=== PATIENT | female | born 1945 | race Caucasian/White ===

== ENCOUNTER 2024-12-26 16:07 | Inpatient (IN) | payer MEDICARE, BC ==
[~2024-12-26] VITALS: Ht 170.2 cm; Wt 72.7 kg
--- NOTE | 2024-12-26 16:35 | Physician Documentation ---
History of Present Illness ~ Chief Complaint: Urinary Symptoms Stated Complaint: LOW OXYGEN/INFECTION Time Seen by MD: 18:07 HPI This is a 79-year-old female who presents for evaluation of persistent recurrent UTI symptoms that include suprapubic pain, urgency, generalized malaise, and frequency as well as burning with urination. This began about eight months ago when she turned 79, and now becomes more frequent. She had recently been seen at our facility diagnosed with UTI, prescribed levofloxacin, which made her very sick with nausea and generalized malaise, but did not improve her symptoms in any way. No palliating or aggravating factors. She is concerned that it medication is not working. Incidentally went to the urgent care to take care of this issue and possibly swi tch medications, however was found to be hypoxic the outside facility at 91% and told to come to the ER. She denies any chest pain or difficulty breathing. She reports a history of vaginal prolapse of bladder. Has not seen an OBGYN for it. No concern for tobacco, alcohol or illicit substances use Medication Reconciliation Allergies: Coded Allergies: No Known Allergies (Unverified , 12/26/24) Review of Systems ROS 10 point review of systems was performed and unless noted above in HPI is negative for acute process/complaint. Physical Exam Vital Signs: Temperature: 97.8, Source: Temporal, Heart Rate: 79, Respiratory Rate: 18, BP: 166/94, Pulse Oximetry: 94, Weight: 72.730 Physical Exam Physical examination: GENERAL: Awake, alert, oriented, GCS 15, no apparent distress, non-toxic appearing, answers questions, follows commands appropriately. Examined in bed 8., accompanied by HEENT: Atraumatic, normocephalic, pupils equal, extraocular muscles intact Active gross movements, sclerae anicteric, mucus membranes moist, no stridor. NECK: Midline, no JVD CARDIOVASCULAR: Good skin perfusion without evidence of pallor, mottling. PULMONARY: Nonlabored, symmetric chest rise, no audible wheezing, no accessory muscle use, no respiratory distress, speaking in full sentences. GASTROINTESTINAL: Not distended. NEUROLOGIC: Lucid with normal mental status. Normal facial symmetry. Moves all extremities symmetrically and with purpose. No truncal ataxia. Speech is fluid without evidence of dysarthria or aphasia, no focal deficits appreciated. EXTREMITIES: Acute deformities Skin: warm, dry PSYCHIATRIC: Normal affect, normal insight, normal concentration. Focused exam: [Pelvic exam was deferred as this appears to be chronic issue and does not appear to be necessary for today's chief complaint of dysuria] Progress Results/Orders Results/Orders Orders - TIP DEJESUS DO Saline Lock (12/26/24 19:53) Hs Troponin I W Calculations (12/26/24 19:53) Straight Cath For Urine Sample (12/26/24 19:53) Page Hospitalist (12/26/24 20:01) Fill Out Med Reconciliation (12/26/24 20:01) Cult Urine + [address] (12/26/24 20:29) Completed Orders - TIP DEJESUS DO Ondansetron Disint. Tablet (Zofran Odt T (12/26/24 18:45) ESR (12/26/24 19:53) C-Reactive Protein (12/26/24 19:53) Normal Saline 1000ml (Sodium Chloride 10 (12/26/24 19:55) Ceftriaxone 2gm/Ns 100ml Ivpb (Rocephin (12/26/24 19:55) Ceftriaxone 2gm/D5w 50ml Bag (Rocephin 2 (12/26/24 19:56) PBNP (12/26/24 19:59) Troponin (Single) (12/26/24 19:59) Ua W/Microscopic, Cult If Ind (12/26/24 20:01) Medications Received in ER Medications (Trade) Dose Ordered Sig/Augustus Route PRN Reason Start Time Stop Time Status Last Admin Dose Admin (Zofran ODT tablet) 8 mg ONCE ONCE PO 12/26/24 18:45 12/26/24 18:46 DC 12/26/24 18:50 8 MG (sodium chloride 1000ml IV soln) 1,000 ml ONCE ONCE IVB 12/26/24 19:55 12/26/24 19:56 DC 12/26/24 20:14 1,000 ML Ceftriaxone Sodium/Dextrose 50 ml @ 100 mls/hr ONCE ONCE IV 12/26/24 19:56 12/26/24 20:24 DC 12/26/24 20:14 100 MLS/HR Sodium Chloride 1,000 ml @ 75 mls/hr [id number] IV 12/26/24 20:45 12/26/24 20:45 75 MLS/HR Vital Signs 12/26/24 12/26/24 12/26/24 12/26/24 16:16 18:07 18:07 18:51 Temp 97.8 97.8 Pulse 79 69 66 Resp 18 15 16 14 B/P (MAP) 166/94 154/82 (106) 159/65 (96) Pulse Ox 94 93 94 O2 Flow Rate 0 Laboratory Tests Test 12/26/24 16:38 12/26/24 17:36 12/26/24 20:01 12/26/24 20:04 White Blood Count 8.4 Red Blood Count 4.17 L Hemoglobin 12.7 Hematocrit 38.0 Mean Corpuscular Volume 91.2 Mean Corpuscular Hemoglobin 30.4 Mean Corpuscular Hemoglobin Concent 33.3 Red Cell Distribution Width 13.1 Platelet Count 265 Mean Platelet Volume 8.4 Neutrophils (%) (Auto) 75.8 H Lymphocytes (%) (Auto) 11.8 L Monocytes (%) (Auto) 11.4 Eosinophils (%) (Auto) 0.6 Basophils (%) (Auto) 0.4 Neutrophils # (Auto) 6.4 Lymphocytes # (Auto) 1.0 L Monocytes # (Auto) 1.0 H Eosinophils # (Auto) 0.1 Basophils # (Auto) 0.0 CBC Comment Sodium Level 144 Potassium Level 3.8 Chloride Level 108 H Carbon Dioxide Level 23.7 L Anion Gap 12 Blood Urea Nitrogen 29 H Creatinine 1.84 H Estimated GFR/1.73 m2 26 BUN/Creatinine Ratio 15.8 Glucose Level 131 H Hemoglobin A1c 5.0 Lactic Acid Level 1.2 Calcium Level 9.4 Albumin 3.7 Procalcitonin 0.12 Chemistry Comments Urine Specimen Description Cln catch midstream Straight cath Urine Color Navarro Navarro Urine Clarity Slightly cloudy Slightly cloudy Urine pH Urine Specific [place] Urine Protein Urine Glucose (UA) Urine Ketones Urine Occult Blood Urine Nitrite Urine Bilirubin Urine Urobilinogen Urine Leukocyte Esterase Urine RBC 3-10 3-10 Urine WBC Tntc H Tntc H Urine Squamous Epithelial Cells Many Moderate Urine Transitional Epithelial Cells Few Urine Bacteria Few Few Urine Culture Indicated Rejected for culture Indicated Volume Urine Centrifuged 10 ml 10 ml Urine Comment See note See note Urine WBC Clumps Moderate Urine Calcium Oxalate Crystals 4+ Urine Eosinophils Few eos Urine Random Creatinine 137.0 Urine Random Total Protein 36.6 Urine Random Sodium 44 Urine Random Urea 472.0 Erythrocyte Sedimentation Rate 62 H Troponin I High Sensitivity 13 C-Reactive Protein 1.31 H Pro-B-Type Natriuretic Peptide 558 H Microbiology Date/Time Source Procedure Growth Status 12/26/24 20:29 Urine Straight Cath Urine Culture - Preliminary Culture received. Resulted 12/26/24 17:17 Blood Arm Left Blood Culture - Preliminary NEGATIVE (LESS THAN 24 HOURS) Resulted EKG/XRAY/CT/US/VASC/MRI Chest X-Ray : Additional Comments [facility] [address] [facility] [address] DIAGNOSTIC RADIOLOGY Patient: NICK ROSADO Medical Record: [id number] [facility] : 1945, Age: 79 Sex: Female Location: ER Patient Status: [facility] [place] ER Service Date/Time: 12/26/24/ 1625 Ordering Physician: DESTINEY ANDRES NP Exam: CHEST,SINGLE VIEW CHEST RADIOGRAPH Indication: sepsis Technique: Single frontal view of the chest was obtained COMPARISON: None FINDINGS: Lines and Tubes: None Lungs: Clear Pleura: No effusion. No pneumothorax. Cardiomediastinal contours: Unremarkable Bones: Unremarkable IMPRESSION: 1. No acute disease. Electronically Signed by:TREY HULL MD Date & Time: 12/26/24 1706 Dictated by: TREY HULL MD Dictation date and time: 12/26/24 1645 Primary Care Provider: NO PRIMARY CARE PROVIDER cc: DESTINEY ANDRES COMMODITY DIRECTOR ~ Medical Decision Making Findings Facility Status: ED [facility], [facility] process The plan was discussed with the patient, who demonstrates clear understanding of the plan and is in agreement with the plan unless otherwise noted in the chart. All questions have been answered, all concerns were addressed unless otherwise documented. I was available throughout their ED stay for frequent reassessment and questions. Differential Diagnoses (considered and possible or likely): [Pyelitis, pyelonephritis, urinary tract infection, failure of outpatient treatment. With respect to 91% oxygen saturation has been outside facility most likely related to lack of skill on a part of registered medical assistant at the urgent Care and erroneous reading, less likely to represent pneumonia, CHF, COPD, ACS, viral infection is the cause for hypoxia] ??Differential Diagnoses (considered and unlikely, not requiring evaluation currently): [See above] MDM Data Please see [facility] for the following: Independent Historians and external Records Review. Historian: [Patient] Independent Historians: ?[] Medication Management: [Reviewed medication list] Social History and determinants: [Reviewed] Please see the body of the note for the following: Any independent interpretations of ECG, imaging studies. All vitals signs/haemodynamics, ordered tests were independently reviewed and interpreted by myself. Nursing triage complaint and vitals reviewed, additional nursing notes were reviewed as available and I agree unless otherwise noted or documented in co ntradiction in the chart Vital Signs: Independently reviewed Labs: Independently interpreted Imaging: Independently interpreted Old Medical Records: Independently reviewed, see [facility] for relevant summary and information Pulse Oximetry: [98%] interpreted as [normal on room air] by me [Rehab Office Coordinator: [Regular Rate, Regular rhythm, no ectopy, NSR] reviewed and interpreted by me] Additionally notably showing: [Hemodynamically stable no evidence of hypoxia here. Laboratory workup is unremarkable, UA is positive for UTI. Imaging negative for pneumonia.] Tests considered but not ordered include: [] Social Determinants of Health Impact: Patient was evaluated in [facility], or [facility] [place] to healthcare due to below par ratio of patient to medical providers. [] Comorbid Conditions Impacting Present Evaluation and Care/Treatment: [] Management Discussions with other Healthcare Providers: [] Treatment and Disposition Medication Management (Given or considered): []. See EMR for details Consideration for Hospitalization/Escalation/Deescalation of Care: Admission for observation has been considered, and is necessary for failure of outpatient management ?ED Course:?[] ?Shared decision making:?[] Code status:?FULL Please see the full Electronic Medical Record for full details of nursing documentation, medications list, other records of complete past medical history and conditions, vital signs, laboratory studies, and any radiologic study interpretations by radiologists. Portions of this note were completed using yuback dictation software and as a result there may exist minor errors in spell ing. I have reviewed elements of past family and social history and agree as included in note. Departure Disposition: 09 ADMITTED INPATIENT Impression: Primary Impression: Acute urinary tract infection Additional Impression: Failure of outpatient treatment Condition: Improved Referrals: NO PRIMARY CARE PROVIDER (PCP) Education Educated: Patient, Family Educated regarding: diagnosis, treatment, prognosis Additional Comment Medical Screen Exam History This is an 79-year-old female who presents from an urgent care due to being found to have low SpO2 at the urgent Care, patient initially reported to urgent care due to concern for urinary tract infection. Patient reports that she is currently being treated for either a vaginal prolapse or bladder prolapse. Reports no fever. Exam: VITALS: Reviewed and as above. GENERAL: Alert, nontoxic appearing, no apparent distress. RESPIRATORY: No increased work of breathing, no respiratory distress, speaking in full clear sentences MSE performed in triage and patient returned to ED lobby by nursing staff The note accurately reflects work and decisions made by me.PAULINO Sharp 12/26/24 16:35 Signature Scribe Signature: No scribe Attestation: This note accurately reflects clinical decisions, work performed by myself, DO CRISTÓBAL Parmar PAUL W FNP Dec 26, 2024 16:35 TIP DEJESUS DO Dec 26, 2024 20:01
[2024-12-26 16:52] LABS: BASOPHILS % (AUTO) 0.4 % (0-1); EOSINOPHILS # (AUTO) 0.1 X10'3 (0-0.9); EOSINOPHILS % (AUTO) 0.6 % (0-6); HEMOGLOBIN 12.7 g/dl (12.0-16.0); LYMPHOCYTES % (AUTO) 11.8 % (21-51); MEAN CORPUSCULAR HEMOGLOBIN 30.4 PG (27.0-31.0); MEAN CORPUSCULAR HGB CONC 33.3 g/dL (33.0-36.5); MEAN CORPUSCULAR VOLUME 91.2 FL (78-98); MEAN PLATELET VOLUME 8.4 FL (7.4-10.4); MONOCYTES % (AUTO) 11.4 % (2-12); NEUTROPHILS # (AUTO) 6.4 X10'3 (1.8-7.7); NEUTROPHILS % (AUTO) 75.8 % (42-75); PLATELET COUNT 265 X10'3 (140-440); RED BLOOD COUNT 4.17 X10'6 (4.20-5.60); RED CELL DISTRIBUTION WIDTH 13.1 % (11.5-14.5); WHITE BLOOD COUNT 8.4 X10'3 (4.5-11.0)
[2024-12-26 16:58] LABS: ALBUMIN 3.7 G/DL (3.4-5.0); ANION GAP 12 (8-16); BLOOD UREA NITROGEN 29 MG/DL (7-18); BUN/CREATININE RATIO 15.8 (10.0-20.0); CALCIUM 9.4 MG/DL (8.5-10.1); CHLORIDE 108 MMOL/L (99-107); CREATININE 1.84 MG/DL (0.40-0.90); POTASSIUM 3.8 MMOL/L (3.5-5.1); SODIUM 144 MMOL/L (135-145); TOTAL CARBON DIOXIDE 23.7 MMOL/L (24-32); eCRCL 24 ML/MIN; eGFR 26 ML/MIN
[2024-12-26 17:03] LABS: GLUCOSE 131 MG/DL (70-104)
--- NOTE | 2024-12-26 17:08 | RADIOLOGY REPORT ---
CHEST RADIOGRAPH Indication: sepsis Technique: Single frontal view of the chest was obtained COMPARISON: None FINDINGS: Lines and Tubes: None Lungs: Clear Pleura: No effusion. No pneumothorax. Cardiomediastinal contours: Unremarkable Bones: Unremarkable IMPRESSION: 1. No acute disease.
[2024-12-26 17:46] LABS: CLARITY,URINE SLIGHTLY CLOUDY (Clear); COLOR,URINE ORANGE (Yellow); UA COLLECTION TYPE CLN CATCH MIDSTREAM
[2024-12-26 17:53] LABS: SQUAMOUS EPITHELIAL CELL,UR MANY /LPF (FEW)
[2024-12-26 17:54] LABS: TRANSITIONAL EPI CELLS,URINE FEW /HPF; WBC,URINE TNTC /HPF (0-4)
[2024-12-26 17:55] LABS: BACTERIA,URINE FEW /HPF (Neg)
[2024-12-26] MEDS: ondansetron 4mg rapidly disintigrating tab PO ONE (18:50)
[2024-12-26] MEDS ORDERED: CefTRIAXone 2gm/NS 100ml IVPB 50 ML IV ONE (19:55)
[2024-12-26] MEDS: normal saline 1000ML IV soln IVB ONE (20:14)
[2024-12-26] MEDS: CefTRIAXone 2gm/D5W 50ml BAG 50 ML IV ONE (20:14)
[2024-12-26 20:19] LABS: CLARITY,URINE SLIGHTLY CLOUDY (Clear); COLOR,URINE ORANGE (Yellow); UA COLLECTION TYPE STRAIGHT CATH
[2024-12-26 20:30] LABS: BACTERIA,URINE FEW /HPF (Neg); SQUAMOUS EPITHELIAL CELL,UR MODERATE /LPF (FEW); WBC,URINE TNTC /HPF (0-4)
[2024-12-26 20:31] LABS: CAL OXALATE CRYSTALS 4+ /HPF (NEGATIVE); WBC CLUMPS,URINE MODERATE /HPF (NEGATIVE)
[2024-12-26 20:33] LABS: C-REACTIVE PROTEIN 1.31 MG/DL (0.0-0.5)
[2024-12-26] MEDS ORDERED: ondansetron/PF 4mg/2ml inj IV PRN (20:45)
[2024-12-26] MEDS ORDERED: potassium Cl 40MEQ/1/2NS 520ml 520 ML IV PRN (20:45)
[2024-12-26] MEDS ORDERED: mag hydrox/Alum hydrox/simeth 30ml oral suspension PO PRN (20:45)
[2024-12-26] MEDS: normal saline 1000ml 1,000 ML IV SCH (20:45)
[2024-12-26] MEDS ORDERED: potassium Cl 20 mEq SR tablet PO PRN ×2 (20:45)
[2024-12-26] MEDS ORDERED: magnesium sulf-water 4G/100mL 100 ML IV PRN (20:45)
[2024-12-26] MEDS ORDERED: magnesium hydroxide 30ml (MOM) UD suspension PO PRN (20:45)
[2024-12-26] MEDS ORDERED: HYDROcodone/acetaminophen 5mg/325mg tablet PO PRN (20:45)
[2024-12-26] MEDS ORDERED: magnesium sulf-water 2g/50mL 50 ML IV PRN (20:45)
[2024-12-26] MEDS ORDERED: magnesium Cl slow-release 64mg tablet PO PRN (20:45)
[2024-12-26] MEDS ORDERED: acetaminophen 325mg tablet PO PRN (20:45)
[2024-12-26 21:19] LABS: TOTAL PROTEIN,URINE RANDOM 36.6 MG/DL
--- NOTE | 2024-12-26 22:46 | HISTORY AND PHYSICAL-Residence ---
History & Physical Providers to CC Resident Creating Document: CIRO BISHOP, LINK ~ History of Present Illness Reason for Admit\Complaint: Multiple UTI History of Present Illness This is an 79-year-old female with past medical history of Beasley's palsy shame to the ER with a chief complaint of urinary problems. For the last one week she has been having burning micturition, difficulty in urinating and increased frequency of urination. She was given course of levofloxacin which made her nauseated and weak but not improve the symptoms. Denies any blood in the urine, denies any fever or lumbar pain. No history of kidney stones. She also feels lightheaded but denies any episodes of losing consciousness. She initially went to urgent care for this but was found to be hypoxic with SpO2 of 91% and was told to come to the ER. She denies any shortness of breadth, chest pain, palpitations. Currently she is saturating at a level of 95% on room air. She had multiple UTIs in the past, 1st UTI in May, 2nd in September, 3rd in November, urine cultures at that time showed Klebsiella pneumoniae resistant to nitrofurantoin She has vaginal prolapse of bladder, noted this two weeks ago. Has not seen a knee bolter for it yet. She had two vaginal deliveries in the past. 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 Hernia in the left groin. Past Surgical History Surgical History Comment No surgical history Family History Family History: FH: diabetes mellitus FATHER Past Social History Social History Comment Denies any history of smoking Denies any history of alcohol use Denies any history of drug use Lives with her . ROS Constitutional: Denies: no symptoms reported, see HPI, chills, diaphoresis, fever, malaise, weakness, other Eyes: Denies: no symptoms reported, see HPI, pain, discharge, blurred vision, double vision, itching, photophobia, redness, tearing, other ENT: Denies: no symptoms reported, see HPI, ear pain, ear bleeding, ear discharge, hearing loss, ear ringing, nose pain, nose bleeding, nose congestion, nose discharge, throat pain, throat swelling, voice change, mouth pain, mouth bleeding, mouth swelling, other Respiratory: Denies: no symptoms reported, see HPI, cough, orthopnea, shortness of breath, SOB with exertion, SOB at rest, stridor, wheezing, hemoptysis, pain with breathing, other Cardiovascular: Denies: no symptoms reported, see HPI, chest pain, left arm pain, diaphoresis, lightheadedness, syncope, edema, palpitations, irregular heart rate, other Gastrointestinal: Denies: no symptoms reported, see HPI, abdomen distended, abdominal pain, nausea, vomiting, diarrhea, constipated, melena, hematemesis, hematochezia, rectal bleeding, rectal pain, dysphagia, poor appetite, poor fluid intake, other Genitourinary: Reports: dysuria Neurological: Denies: no symptoms reported, see HPI, speech problem, headache, dizziness, fainting, tingling, left sided numbness, right sided numbness, left sided weakness, right sided weakness, problems walking, unable to move lower ext, unable to move upper ext, petit mal seizures, tonic-clonic seizures, cognitive dysfunction, other Musculoskeletal: Denies: no symptoms reported, see HPI, pain, swelling, back pain, gout, joint pain, joint swelling, muscle pain, muscle swelling, muscle stiffness, neck pain, other Exam Vitals: Vital Signs Date Time Temp Pulse Resp B/P (MAP) Pulse Ox O2 Delivery O2 Flow Rate FiO2 12/26/24 18:51 66 14 159/65 (96) 94 12/26/24 18:07 97.8 0 General: General Awake and Alert, not in distress HEENT: Conjunctiva pink, Sclera clear Neck: Supple without masses and tenderness. Resp: Bilateral breath sounds are clear Heart: Regular Rate and rhythm, normal S1 and S2 without murmur, rub or gallop. Abdomen: Soft and non tender no organomegaly Genital exam-no vaginal swelling noticed. Extremities: No cyanosis,clubbing, no pedal Skin: Warm and Dry. Neurology: Alert, oriented. Month deviated towards the right on smiling. Absent forehead creases in the left side. Left-sided facial nerve palsy. No other focal neurological deficits Diagnostic Data Last Recorded Lab Results: 12/26/24 1638 12/26/24 1638 Advance Care Planning Advanced Care plannin - 30 Minutes (I spent 17 minutes in discussing various resuscitative measures, the patient chose to be DNR.) Additional Plan Assessment This is an 79-year-old female with history of Beasley's palsy, came with a chief complaint of dysuria. Patient is being admitted for multiple UTIs, failed outpatient oral antibiotic therapy. Patient also has LISETTE. Plan Recurrent UTI Failed outpatient oral antibiotic Urine analysis positive for I WBC, 4+ urine bacteria WBC count, lactic acid, procalcitonin in the normal range, elevated ESR and CRP Urine and blood cultures ordered Previous urine cultures from September and November positive for Klebsiella pneumoniae, resistant to nitrofurantoin. Started on IV ceftriaxone Abdominal CT ordered for possible nephrolithiasis LISETTE likely secondary to renal tubular stasis Creatinine 1.84, BUN 29 Baseline creatinine is not known Started on IV fluids NS@ 75 mL/hour Urine electrolytes ordered Avoid NSAIDs, nephrotoxin agents Continue to monitor with repeat BMP. Vaginal prolapse Patient might need a vaginal ultrasound Gynecology follow up after discharge Code status: DNR DVT prophylaxis: Heparin Diet: Regular Lines/tubes: Peripheral IV line Ciro Bishop M.D PGY1 Plan reviewed with bedside team. Patient seen through remote audiovisual assessment through HIPAA compliant setup. All labs, flowsheets, and images reviewed Cumulative nonprocedural care time spent in directed patient care = 30 min Date of Service: Dec 26, 2024 Billing Provider: ELIZABETH HUYNH MD, PRAVAHIKA, RES Dec 26, 2024 22:46 ELIZABETH HUYNH MD Dec 27, 2024 06:16
[2024-12-27] VITALS (10 sets, daily range): BP systolic 128–182; BP diastolic 67–96; PULSE 62–86; RESP 14–17; TEMP 97.3–98.3; O2SAT 92–95
--- NOTE | 2024-12-27 01:57 | RADIOLOGY REPORT ---
CLINICAL HISTORY: for renal stones TECHNIQUE: CT of the abdomen and pelvis was performed without intravenous contrast. This exam was per formed according to our departmental dose optimization program. Up-to-date CT equipment and radiation dose reduction techniques are utilized as appropriate. CTDI: 19.78+ 0.21 DLP: 976.42 WID: COMPARISON: None FINDINGS: Lower Thorax: Small to moderate-sized hiatal hernia. Normal-sized heart. Partially imaged mild-to-mo derate right coronary artery calcifications. Linear bibasilar scarring or atelectasis. Mild centrilob ular emphysema in the lung bases. There is a small fat containing right bochdalek hernia. Liver and Biliary system: Normal-sized liver. No definite hepatic lesion. There is cholelithiasis in a normal caliber gallbladder. There is no biliary ductal dilatation. Spleen: Unremarkable. Adrenal Glands and Kidneys: Normal adrenal glands. There are small nonobstructing bilateral renal anant culi. There is no hydronephrosis. Pancreas and Retroperitoneum: Mildly atrophic pancreas. No retroperitoneal lymphadenopathy. Aorta and Major Vessels: Aortoiliac vessels are normal in caliber with mild calcified atherosclerotic plaque. Bowel, Mesentery and Peritoneal space: Normal caliber small and large bowel. Nonobstructed distal ebony cending and proximal to mid sigmoid colon courses into a moderate-sized left inguinal hernia. No free air or fluid collection. Pelvis: Urinary bladder is mildly distended. The uterus and ovaries are grossly unremarkable. There is no pelvic lymphadenopathy. Abdominal wall and Osseous Structures: There is a moderate-sized left inguinal hernia containing mese nteric fat and nonobstructed distal descending and proximal to mid sigmoid colon. Small fat containin g umbilical hernia. There is severe osteoarthritis of the bilateral hips with [id number] articulati on, greater on the left where there is deformity and bony remodeling of the left femoral head. Modera te degenerative disc space narrowing at L1-L2 as well as grade 1 retrolisthesis at this level. Minima l anterolisthesis at L4-L5 and L5-S1. Bony demineralization. Multilevel lower thoracic and lumbar sp ondylosis. IMPRESSION: 1. Moderate-sized left inguinal hernia containing mesenteric fat and nonobstructed distal descending and proximal to mid sigmoid colon. 2. Tiny nonobstructing bilateral renal calculi. 3. Small hiatal hernia. 4. Partially imaged admo-ys-egtmmchv right coronary artery calcifications. 5. Mild emphysema in the lung bases. 6. Cholelithiasis. 7. Severe osteoarthritis of the bilateral hips with dmjr-uh-[id number] articulation, greater on the left wh ere there is deformity and bony remodeling of the left femoral head.
[2024-12-27 04:57] LABS: BASOPHILS % (AUTO) 0.3 % (0-1); EOSINOPHILS # (AUTO) 0.2 X10'3 (0-0.9); EOSINOPHILS % (AUTO) 2.5 % (0-6); HEMATOCRIT 33.3 % (35.0-45.0); LYMPHOCYTES # (AUTO) 1.1 X10'3 (1.1-4.8); LYMPHOCYTES % (AUTO) 16.8 % (21-51); MEAN CORPUSCULAR HEMOGLOBIN 30.1 PG (27.0-31.0); MEAN CORPUSCULAR VOLUME 91.3 FL (78-98); MEAN PLATELET VOLUME 8.4 FL (7.4-10.4); MONOCYTES # (AUTO) 0.8 X10'3 (0-0.9); MONOCYTES % (AUTO) 12.3 % (2-12); NEUTROPHILS # (AUTO) 4.6 X10'3 (1.8-7.7); NEUTROPHILS % (AUTO) 68.1 % (42-75); PLATELET COUNT 216 X10'3 (140-440); RED BLOOD COUNT 3.65 X10'6 (4.20-5.60); RED CELL DISTRIBUTION WIDTH 13.5 % (11.5-14.5); WHITE BLOOD COUNT 6.8 X10'3 (4.5-11.0)
[2024-12-27 05:26] LABS: ALBUMIN 3.2 G/DL (3.4-5.0); ANION GAP 11 (8-16); BLOOD UREA NITROGEN 28 MG/DL (7-18); BUN/CREATININE RATIO 16.2 (10.0-20.0); CALCIUM 8.7 MG/DL (8.5-10.1); CHLORIDE 110 MMOL/L (99-107); CHOL/HDL RATIO 2.9 (0.00-4.99); CHOLESTEROL 171 MG/DL (0-200); CREATININE 1.73 MG/DL (0.40-0.90); HDL CHOLESTEROL 59 MG/DL (35-60); LDL CHOLESTEROL 90 MG/DL (50-100); MAGNESIUM 1.9 MG/DL (1.5-2.4); POTASSIUM 3.7 MMOL/L (3.5-5.1); SODIUM 146 MMOL/L (135-145); TOTAL CARBON DIOXIDE 24.8 MMOL/L (24-32); TRIGLYCERIDES 68 MG/DL (20-135); eCRCL 25 ML/MIN; eGFR 28 ML/MIN
[2024-12-27 05:39] LABS: GLUCOSE 104 MG/DL (70-104)
[2024-12-27] MEDS: K and/or MAG REPLACEMENT MC SCH (08:00)
[2024-12-27] MEDS ORDERED: hydrALAZINE 20mg/ml inj. IV PRN (08:55)
[2024-12-27] MEDS: CefTRIAXone/D5W-Rocephin 1gm 50 ML IV SCH (09:22)
[2024-12-27] MEDS: dextrose 5%-water 1,000 ML IV SCH (09:22)
[2024-12-27] MEDS: lactobacillus rhamnosus 10,000 MMU CELLS/CAPSULE PO SCH (09:26)
[2024-12-27] MEDS: amLODIPine 5mg tablet PO ONE (09:27)
[2024-12-27] MEDS: docusate sod 100mg capsule PO SCH (09:28)
[2024-12-27] MEDS: heparin, porcine 5000 units/ml vial SQ SCH (09:28)
[2024-12-27] MEDS ORDERED: NO HOME MEDS (09:42)
[2024-12-27] MEDS: hyDRALAzine 10mg tablet PO STA (11:54)
--- NOTE | 2024-12-27 11:56 | PROGRESS NOTE ---
Daily Progress Note Providers to CC ~ Antibiotic Timeout Antibiotic Ordered?: Yes If Yes, Indications: UTI Subjective No acute events overnight. Patient examined at bedside. No new complaints. Patient denies chest pain, sob, palpitations, abdominal pain, n/v/d. Hypertensive w/ systolic in 180s, labs notable for improving renal function. Lactic acid normal, procal negative. Preliminary blood/urine culture negative. Objective Vital Signs Date Time Temp Pulse Resp B/P (MAP) Pulse Ox O2 Delivery O2 Flow Rate FiO2 12/27/24 09:27 69 12/27/24 08:00 16 95 Room Air 12/27/24 06:00 97.3 173/87 (115) 12/26/24 18:07 0 Result Diagram: 12/27/24 0438 12/27/24437 Physical Exam General: Generalized weakness, A&Ox 3, NAD HEENT: Normocephalic, PERRLA Neck: Supple, trachea midline, no JVD Chest: Clear to auscultation bilaterally Cardiovascular: RRR, S1&S2 GI: Soft and nontender Extremities: No cyanosis/clubbing/or edema INSURANCE EXECUTIVE: CN II-XII intact, no focal deficits Musculoskeletal: No paraspinal muscle tenderness, no muscle spasm Skin: Warm and intact Problem\Assessment\Plan # UTI, recurrent -12/27: failed outpatient oral antibiotic, positive UA for UTI, CT abd/pelv nonostructing b/l nephrolithiasis; continue ceftriaxone, follow urine/blood cx # 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
[2024-12-27] MEDS: hyDRALAzine 10mg tablet PO SCH (16:00)
--- NOTE | 2024-12-27 18:44 | CARDIOLOGY REPORT ---
APPROVED REPORT EXAM: Comprehensive 2D, Doppler, and color-flow Echocardiogram. 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 PRIOR ECHOCARDIOGRAM: None. 2D Dimensions RVDd 3.5 cm IVSd 0.8 (0.7-1.1cm) LVDd 5.1 cm PWd 0.8 (0.7-1.1cm) IVSs 1.0 (0.8-1.2cm) LVDs 3.4 (2.5-4.0cm) PWs 1.3 (0.8-1.2cm) LVOT Diameter 1.96 (1.8-2.4cm) LVEF(%) 70.0 (>50%) FS (%) 33.1 % SV 75.3 ml M-Mode Dimensions Left Atrium(MM) 4.15 (2.5-4.0cm) Aortic Root 2.76 (2.2-3.7cm) Aortic Valve AoV Peak Stevan. 144.9 cm/s AoV VTI 35.4 cm AO Peak GR. 8.4 mmHg AO Mean GR. 5 mmHg LVOT VTI 32.34 cm LVOT Peak Stevan. 130.5 cm/s JONY (VMAX) 2.73 cm2 JONY (VTI) 2.77 cm2 Mitral Valve MV E Velocity 81.8 cm/s MV DECEL TIME 220 ms MV A Velocity 87.6 cm/s MV PHT 63 ms E/A Ratio 0.9 MVA (PHT) 3.48 cm2 LEFT VENTRICLE Normal LV size and wall thickness. Overall systolic function is normal. LVEF is 70%. RIGHT VENTRICLE RV is normal size and function. ATRIA Left atrium is mildly dilated. The right atrium size is normal. AORTIC VALVE Trileaflet AV appears mildly sclerotic without stenosis. No insufficiency. MITRAL VALVE Mitral valve is grossly normal in structure. No regurgitation. TRICUSPID VALVE TV appears structurally normal with no regurgitation. PULMONIC VALVE The pulmonary valve is normal in structure. No insufficiency. GREAT VESSELS The aortic root is normal in size. The IVC is normal in size and collapses >50% with inspiration. PERICARDIUM Normal pericardium. No effusion. Other Information Study Quality: Adequate Conclusion Normal LV size and wall thickness. Overall systolic function is normal. LVEF is 70%. RV is normal size and function. Left atrium is mildly dilated. Trileaflet AV appears mildly sclerotic without stenosis. No insufficiency. Mitral valve is grossly normal in structure. No regurgitation. TV appears structurally normal with no regurgitation. Normal pericardium. No effusion.
[2024-12-27] MEDS: acetaminophen 325mg tablet PO PRN (19:18)
[2024-12-28 00:30] VITALS: BP 135/66; PULSE 66; RESP 16; O2SAT 94
[2024-12-28 04:54] LABS: BASOPHILS % (AUTO) 0.6 % (0-1); EOSINOPHILS # (AUTO) 0.3 X10'3 (0-0.9); EOSINOPHILS % (AUTO) 6.1 % (0-6); HEMATOCRIT 31.6 % (35.0-45.0); HEMOGLOBIN 10.7 g/dl (12.0-16.0); LYMPHOCYTES # (AUTO) 1.3 X10'3 (1.1-4.8); LYMPHOCYTES % (AUTO) 22.3 % (21-51); MEAN CORPUSCULAR HEMOGLOBIN 30.9 PG (27.0-31.0); MEAN CORPUSCULAR HGB CONC 33.7 g/dL (33.0-36.5); MEAN CORPUSCULAR VOLUME 91.6 FL (78-98); MEAN PLATELET VOLUME 8.3 FL (7.4-10.4); MONOCYTES # (AUTO) 0.7 X10'3 (0-0.9); MONOCYTES % (AUTO) 11.9 % (2-12); NEUTROPHILS # (AUTO) 3.3 X10'3 (1.8-7.7); NEUTROPHILS % (AUTO) 59.1 % (42-75); PLATELET COUNT 196 X10'3 (140-440); RED BLOOD COUNT 3.45 X10'6 (4.20-5.60); RED CELL DISTRIBUTION WIDTH 13.6 % (11.5-14.5); WHITE BLOOD COUNT 5.7 X10'3 (4.5-11.0)
[2024-12-28 05:07] LABS: ANION GAP 7 (8-16); BLOOD UREA NITROGEN 26 MG/DL (7-18); BUN/CREATININE RATIO 20.3 (10.0-20.0); CALCIUM 8.6 MG/DL (8.5-10.1); CHLORIDE 109 MMOL/L (99-107); CREATININE 1.28 MG/DL (0.40-0.90); MAGNESIUM 1.7 MG/DL (1.5-2.4); POTASSIUM 3.6 MMOL/L (3.5-5.1); SODIUM 144 MMOL/L (135-145); TOTAL CARBON DIOXIDE 27.7 MMOL/L (24-32); eCRCL 34 ML/MIN; eGFR 40 ML/MIN
[2024-12-28 05:23] LABS: GLUCOSE 101 MG/DL (70-104)
[2024-12-28 06:00] VITALS: BP 122/77; PULSE 58; RESP 18; TEMP 97.8; O2SAT 95
[2024-12-28] MEDS: amLODIPine 5mg tablet PO SCH (08:00)
[2024-12-28 09:35] VITALS: RESP 16
[2024-12-28] MEDS ORDERED: NITR100C PO (10:15)
[2024-12-28 11:58] VITALS: BP 154/73; PULSE 76; RESP 14; TEMP 97.2; O2SAT 95
--- NOTE | 2024-12-28 14:22 | DISCHARGE SUMMARY ---
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 For the last one week she has been having burning micturition, difficulty in urinating and increased frequency of urination. She was given course of levofloxacin which made her nauseated and weak but not improve the symptoms. Denies any blood in the urine, denies any fever or lumbar pain. No history of kidney stones. She also feels lightheaded but denies any episodes of losing consciousness. She initially went to urgent care for this but was found to be hypoxic with SpO2 of 91% and was told to come to the ER. She denies any shortness of breadth, chest pain, palpitations. Currently she is saturating at a level of 95% on room air. She had multiple UTIs in the past, 1st UTI in May, 2nd in September, 3rd in November, urine cultures at that time showed Klebsiella pneumoniae resistant to nitro furantoin. She has vaginal prolapse of bladder, noted this two weeks ago. Has not seen a drafter commercial for it yet. She had two vaginal deliveries in the past." Hospital Course Diagnostic findings were notable for abnormal renal function, urinalysis indicating urinary tract infection. Pertinent negative findings were CT abdomen/pelvis revealing small nonobstructing bilateral renal calculi without hydronephrosis, negative chest x-ray, normal lactic acid, negative procal, no leukocytosis, afebrile. Patient was treated with intravenous fluids and empirical antibiotics. Patient developed hypertensive urgency which was treated with antihypertensives. Patient did not experience further complications throughout the entire hospital stay and made a good recovery. Patient was seen and examined on the day of discharge. All labs, diagnostic workups, discharge plan discussed with patient in details during visit before discharge. On day of discharge, vss and labs notable for improving acute kidney injury. Blood culture remains negative until the day of discharge. All questions and concerns answered to the best of my professional knowledge. Patient is to be discharged with HH and to follow-up with PCP and her drafter commercial within 2 weeks. Physical Exam General: Generalized weakness, A&Ox 3, NAD HEENT: Normocephalic, PERRLA Neck: Supple, trachea midline, no JVD Chest: Clear to auscultation bilaterally Cardiovascular: RRR, S1&S2 GI: Soft and nontender Extremities: No cyanosis/clubbing/or edema DIRECTOR OF INSTITUTIONAL RESEARCH: CN II-XII intact, no focal deficits Musculoskeletal: No paraspinal muscle tenderness, no muscle spasm Skin: Warm and intact *Problems/Diagnosis: (1) Acute urinary tract infection Status: Acute (2) Failure of outpatient treatment Status: Acute Total Time Spent on D/C: > 30 Minutes Date of Service: Dec 28, 2024 Billing Provider: EVA WHITTAKER Common Visit Codes: 33715-SBG/OBS DISCH DAY >30min EVA WHITTAKER Dec 28, 2024 14:22
[2024-12-28] MEDS ORDERED: CIPR-202 PO (14:24)
[2024-12-28] MEDS ORDERED: AMLO5TAB PO (14:32)
[2024-12-28] MEDS ORDERED: amLODIPine 5mg tablet PO ONE (14:35)
== END 2024-12-28 14:20 | disposition home or self-care (01) | DRG 689 ==
LOC: ER 16:09 → ED HOLD 20:52 → EDBEDREQ 12-27 00:20 → SUR 3N 12-27 00:50
PROVIDERS: ADMIT Internal Medicine Critical Care Medicine; ATTEND Nurse Practitioner Family
DX: N39.0 Urinary tract infection, site not specified (principal); N17.0 Acute kidney failure with tubular necrosis; E87.0 Hyperosmolality and hypernatremia; Z66 Do not resuscitate; N81.10 Cystocele, unspecified; I16.0 Hypertensive urgency; N20.0 Calculus of kidney
CPT/HCPCS: 36415; 71045; 74176; 80048; 80061; 81001; 82570; 83036; 83605; 83735; 83880; 84145; 84156; 84300; 84484; 84540; 85025; 85651; 86140; 87040; 87081; 87088; 87207; 93306; 96365; 97161; 97530; 99285; A4353; A6258; G0378; J0696; J1644; J7030; J7042; J7070